=== PATIENT | female | born 1940 | race Caucasian/White ===

== ENCOUNTER → 2016-09-16 | Outpatient (CLI) | payer BC ==
[~2016-09-16] MED LIST: CHOL100010 PO; DOXA4TAB2 PO; HYDR50TA3 PO; PANT40TA PO; POTA10CA28 PO; RALO60TA12 PO; VALS320T PO; VENL75TA4 PO; VITAPULSE PO
--- NOTE | 2016-09-16 15:53 | MAMMOGRAPHY REPORT ---
BILATERAL DIGITAL SCREENING MAMMOGRAM WITH CAD: 09/16/2016 CLINICAL HISTORY: Routine screening. Patient has no complaints. TECHNIQUE: Bilateral CC and MLO views were obtained. Current study was also evaluated with a Compute r Aided Detection (CAD) system. COMPARISON: Comparison is made to exams dated: 08/13/2015 mammogram, 08/10/2014 mammogram, 07/28/2013 m ammogram, 07/21/2012 mammogram, 07/21/2011 mammogram, and 06/30/2010 mammogram - [facility] [address] BREAST COMPOSITION: The tissue of both breasts is heterogeneously dense, which may obscure small mas ses. FINDINGS: The parenchymal pattern is unchanged. An asymmetry in the upper outer posterior right west ast appears similar on all available prior mammograms dating back to at least 06/09/2007, therefore l ikely benign. No developing mass, architectural distortion or cluster of suspicious microcalcificati ons is seen in either breast. IMPRESSION: ACR BI-RADS CATEGORY 2: BENIGN There is no mammographic evidence of malignancy. A 1 year screening mammogram is recommended. The pa tient will receive written notification of the results. Approximately 10% of breast cancers are not detected with mammography. A negative mammographic report should not delay biopsy if a clinically suggestive mass is present. Melinda Friedman M.D. ay/:09/16/2016 13:34:24 Wildlife Policy Professional: Selin Brito, [facility] letter sent: Normal 1/2 BI-RADS Code: ACR BI-RADS Category 2: Benign
== END | disposition home or self-care (01) ==
LOC: C.MAMM 13:01
PROVIDERS: ATTEND Family Medicine
DX: Z12.31 Encounter for screening mammogram for malignant neoplasm of breast (principal)

== ENCOUNTER → 2016-10-22 | Outpatient (CLI) | payer BC | END | disposition home or self-care (01) | LOC: C.MAMM 13:05 | PROVIDERS: ATTEND Family Medicine | DX: M85.88 Other specified disorders of bone density and structure, other site (principal) ==

== ENCOUNTER → 2017-02-17 | Day surgery (SDC) | payer BC ==
[2017-02-11 15:10] VITALS: Ht 160 cm; Wt 68.2 kg
[~2017-02-17] VITALS: Ht 160 cm; Wt 68.2 kg
[~2017-02-17] MED LIST changes: -CHOL100010 PO; +CHOL20009 PO; +FENTANYL CITRATE INJ 50 MCG/1 ML 2 ML VIAL ONE; +LIDOCAINE HCL 2% 2 ML VIAL (20MG/ML) ONE; -PANT40TA PO; +PROPOFOL IV EMULSION 10 MG/ML 20 ML VIAL IV ONE; +PRT/20 PO; -RALO60TA12 PO; +RALO60TA30 PO; -VITAPULSE PO; +[UNRECOGNIZED DRUG - OTHER] PO
--- NOTE | 2017-02-17 13:48 | Endo History and Physical ---
History & Physical Date of Service: Feb 17, 2017. Chief Complaint: Difficulty swallowing Referring Physician: Dr. Ortiz History of Present Illness Patient referred for upper endoscopy to evaluate a history of intermittent difficulty with swallowing. She describes having some difficulty swallowing breads and meats over the last 6 months. She does have a history of heartburn and has been on Protonix for several years. There is no history of chest or abdominal surgery. No history of radiation therapy. Past Surgical History Hx Cardiac Surgery: No Hx Internal Defibrillator: No Hx Pacemaker: No Hx Abdominal Surgery: Yes (MARTINA BSO) Hx of Implantable Prosthesis: No Hx Post-Op Nausea and Vomiting: No Hx Cancer Surgery: No Hx Thoracic Surgery: No Hx Orthopedic: Yes (LT SHOULDER SURGERY, LT WRIST SURGERY) Hx Urinary Tract Surgery: No Family History None Social History Smoking Status: Never Smoker Hx Substance Use: No Hx Alcohol Use: Yes (1-2 GLASSES WINE/DAY) Allergies Coded Allergies: No Known Allergies (Verified , 02/17/17) Current Medications Reported Home Medications Medications Dose Route/Sig Max Daily Dose Days Date Category [Panexitrol] 1 Tab PO QAM 02/11/17 Reported Vitamin D (Cholecalciferol) 2,000 Unit Tab 1 Tab PO QAM 02/11/17 Reported Protonix (Pantoprazole Sodium) 20 Mg Tab 2 Tabs PO QAM 02/11/17 Reported Effexor (Venlafaxine Hcl) 75 Mg Tab 75 Mg PO BID 11/04/15 Reported Diovan (Valsartan) 320 Mg Tab 320 Mg PO QAM 11/04/15 Reported Evista (Raloxifene Hcl) 60 Mg Tab 60 Mg PO QAM 11/04/15 Reported Micro-K Ext Rel (Potassium Chloride) 10 Meq Capcr 10 Meq PO QAM 11/04/15 Reported Hctz (Hydrochlorothiazide) 50 Mg Tab 50 Mg PO QAM 11/04/15 Reported Cardura (Doxazosin Mesylate) 4 Mg Tab 4 Mg PO QAM 11/04/15 Reported Vital Signs Weight (Kilograms): 68.18 Height (Feet): 5 Height (Inches): 3 Physical Exam General Appearance: no apparent distress Respiratory/Chest: Auscultation: breath sounds normal Cardiovascular: Heart Auscultation: RRR Abdomen: Inspection & Palpation: soft Assessment and Plan Patient for upper endoscopy today to evaluate a history of difficulty swallowing. We have discussed the risks to include bleeding, infection, perforation, pain and need for follow-up studies.
--- NOTE | 2017-02-17 14:29 | GI REPORT ---
Procedure Date: 02/17/2017 2:03 PM Procedure: Upper GI endoscopy Indications: Dysphagia Medicines: Monitored Anesthesia Care Complications: No immediate complications. Estimated blood loss: Minimal. Estimated Blood Loss: Estimated blood loss was minimal. Procedure: Pre-Anesthesia Assessment: - Prior to the procedure, a History and Physical was performed, and patient medications, allergies and sensitivities were reviewed. The patient's tolerance of previous anesthesia was reviewed. - The risks and benefits of the procedure and the sedation options and risks were discussed with the patient. All questions were answered and informed consent was obtained. - Patient identification and proposed procedure were verified prior to the procedure by the physician, the nurse and the placement director. The procedure was verified in the procedure room. - Pre-procedure physical examination revealed no contraindications to sedation. - ASA Grade Assessment: II - A patient with mild systemic disease. - After reviewing the risks and benefits, the patient was deemed in satisfactory condition to undergo the procedure. - The anesthesia plan was to use monitored anesthesia care (MAC). - Immediately prior to administration of medications, the patient was re-assessed for adequacy to receive sedatives. - The heart rate, respiratory rate, oxygen saturations, blood pressure, adequacy of pulmonary ventilation, and response to care were monitored throughout the procedure. - The physical status of the patient was re-assessed after the procedure. After obtaining informed consent, the endoscope was passed under direct vision. Throughout the procedure, the patient's blood pressure, pulse, and oxygen saturations were monitored continuously. The On-site loaner was introduced through the mouth, and advanced to the third part of duodenum. The upper GI endoscopy was accomplished without difficulty. The patient tolerated the procedure well. Findings: No endoscopic abnormality was evident in the esophagus to explain the patient's complaint of dysphagia. It was decided, however, to proceed with dilation of the entire esophagus. A guidewire was placed and the scope was withdrawn. Dilation was performed with a Savary dilator with no resistance at 54 Fr. The endoscope was then reinserted to evaluate the success of the procedure. Estimated blood loss: none. LA Grade A (one or more mucosal breaks less than 5 mm, not extending between tops of 2 mucosal folds) esophagitis with no bleeding was found 33 to 35 cm from the incisors. Biopsies were taken with a cold forceps for histology. Estimated blood loss was minimal. A small hiatus hernia was found. The proximal extent of the gastric folds (end of tubular esophagus) was 35 cm from the incisors. The hiatal narrowing was 37 cm from the incisors. The Z-line was 35 cm from the incisors. Multiple 4 to 7 mm sessile polyps with no bleeding and no stigmata of recent bleeding were found in the gastric body. Biopsies were taken with a cold forceps for histology. Estimated blood loss was minimal. Diffuse mild inflammation characterized by erythema and granularity was found in the gastric antrum. Biopsies were taken with a cold forceps for histology. Estimated blood loss was minimal. The examined duodenum was normal. Impression: - No endoscopic esophageal abnormality to explain patient's dysphagia. Esophagus dilated to 54 Fr. - LA Grade A reflux esophagitis. Biopsied. - Small hiatus hernia. - Multiple gastric polyps. Biopsied. - Chronic gastritis. Biopsied. - Normal examined duodenum. Recommendation: - Discharge patient to home (ambulatory). - Advance diet as tolerated today. - Increase Protonix to 40 mg daily. Ammy Fields D.O. Ammy Fields, 02/17/2017 2:29:18 PM This report has been signed electronically. Note Initiated On: 02/17/2017 2:03 PM I attest to the content of the Intraoperative Record and orders documented therein, exceptions below
--- NOTE | 2017-02-17 14:32 | Discharge Instructions ---
Endoscopy Patient Instructions Date / Procedure(s) Performed Feb 17, 2017. EGD Allergy Information Coded Allergies: No Known Allergies (Verified , 02/17/17) Discharge Date / Findings Feb 17, 2017. Small hiatal hernia Mild esophagitis Several gastric polyps Mild gastritis Medication Instructions Reported Home Medications Medications Dose Route/Sig Max Daily Dose Days Date Category [Panexitrol] 1 Tab PO QAM 02/11/17 Reported Vitamin D (Cholecalciferol) 2,000 Unit Tab 1 Tab PO QAM 02/11/17 Reported Protonix (Pantoprazole Sodium) 20 Mg Tab 2 Tabs PO QAM 02/11/17 Reported Effexor (Venlafaxine Hcl) 75 Mg Tab 75 Mg PO BID 11/04/15 Reported Diovan (Valsartan) 320 Mg Tab 320 Mg PO QAM 11/04/15 Reported Evista (Raloxifene Hcl) 60 Mg Tab 60 Mg PO QAM 11/04/15 Reported Micro-K Ext Rel (Potassium Chloride) 10 Meq Capcr 10 Meq PO QAM 11/04/15 Reported Hctz (Hydrochlorothiazide) 50 Mg Tab 50 Mg PO QAM 11/04/15 Reported Cardura (Doxazosin Mesylate) 4 Mg Tab 4 Mg PO QAM 11/04/15 Reported Provider Instructions Activity Restrictions - No exercising or heavy lifting for 24 hours. - Do not drink alcohol the day of the procedure. - Do not drive a car or operate machinery until the day after the procedure. - Do not make any important decisions or sign important papers in 24 hours after the procedure. Following Day: - Return to full activity which may include returning to work/school. Diet Start your diet with liquids and light foods (jello, soup, juice, toast). Then eat your usual diet if not nauseated. Treatment For Common After Affects For mild abdominal pain, bloating, or excessive gas: - Rest - Eat lightly - Lie on right side Follow-Up Information Follow-up with Dr. Ortiz if symptoms do not improve Await pathology results Continue use of Protonix at 40 mg daily Anesthesia Information What You Should Know You have had a procedure that required some medicine to reduce anxiety and discomfort. This treatment is called moderate sedation. After receiving the treatment, you may be sleepy, but you will be able to breathe on your own. The effects of the treatment may last for several hours. Follow these instructions along with Activity/Diet recommendations noted above: * Do NOT do anything where dizziness or clumsiness would be dangerous. * Rest quietly at home today, then you can be up and about tomorrow. * Have a responsible person stay with you the rest of today. * You may have had an I.V. today. If so, you may take the dressing off later today. Recommendations Call your doctor if: * Trouble breathing * Continuous vomiting for more than 24 hours * Temperature above 101 degrees * Severe abdominal pain or bloating * Pain not relieved by pain medicine ordered * There is increased drainage or redness from any incision * A large amount of rectal bleeding greater than 2-3 tablespoons. (If you had a polyp/s removed or have hemorrhoids, a small amount of blood - from the rectum is to be expected.) * You have any unanswered questions or concerns. IN THE EVENT OF A SERIOUS EMERGENCY, GO TO THE NEAREST EMERGENCY ROOM Your discharge instructions were prepared by provider Ammy Fields. Patient Instructions Signature Page Jahaira Hoover Patient (or Guardian) Signature/Date: I have read and understand the instructions given to me by my caregivers. Caregiver/RN/Doctor Signature/Date: The above-named patient and/or guardian has received patient instructions on this date. + Original Patient Signature Page (only) stays with chart. Please make copy for patient.
[2017-02-17 15:02] VITALS: BP 137/87; PULSE 77; O2SAT 95
--- NOTE | 2017-02-17 15:19 | Anesthesiology Progress Note ---
Anesthesia Post Op Note Date & Time Feb 17, 2017 at 15:19 Vital Signs Pain Intensity: 0 Vital Signs Past 12 Hours Date Time Temp Pulse Resp B/P (MAP) Pulse Ox O2 Delivery O2 Flow Rate FiO2 02/17/17 15:02 77 16 137/87 (104) 95 Room Air 02/17/17 14:47 80 16 109/86 (94) 93 Room Air 02/17/17 14:32 80 16 113/72 (86) 95 Room Air 02/17/17 13:50 36.8 89 18 168/95 (119) 94 Room Air Notes Mental Status: alert / awake / arousable, participated in evaluation Pt Amnestic to Procedure: Yes Nausea / Vomiting: adequately controlled Pain: adequately controlled Airway Patency, RR, SpO2: stable & adequate BP & HR: stable & adequate Hydration State: stable & adequate Anesthetic Complications: no major complications apparent
== END | disposition home or self-care (01) ==
LOC: C.GI 13:20
PROVIDERS: ATTEND Internal Medicine Gastroenterology
DX: R13.10 Dysphagia, unspecified (principal); K21.0 Gastro-esophageal reflux disease with esophagitis; K44.9 Diaphragmatic hernia without obstruction or gangrene; K29.70 Gastritis, unspecified, without bleeding; R12 Heartburn; Z90.710 Acquired absence of both cervix and uterus